=== PATIENT | female | born 1985 | race Caucasian/White ===

== ENCOUNTER 2017-06-23 13:08 | Inpatient (IN) | payer OTHER ==
[2017-06-23] MEDS ORDERED: Metoclopramide 10 MG/2 ML SDV IVPUSH ONE (16:45)
[2017-06-23] MEDS ORDERED: Citric Acid/Sodium Citrate Solution 30 ML Cup PO ONE (16:45)
[2017-06-23] MEDS ORDERED: ceFAZolin 2 GM in Premix Bag 1 BAG IV ONE (16:45)
[2017-06-23] MEDS ORDERED: Lactated Ringers 1,000 ML IV SCH (16:45)
[2017-06-23] MEDS ORDERED: Bupivacaine 0.5% 30 ML SDV ONE (16:56)
[2017-06-23] MEDS ORDERED: Oxytocin/Lactated Ringers 10 UNIT/1,000 ML BAG IV SCH (17:00)
[2017-06-23] MEDS ORDERED: Morphine PF 10 MG/10 ML SDV ONE (17:06)
[2017-06-23] MEDS ORDERED: ceFAZolin 1 GM Vial ONE (17:06)
[2017-06-23] MEDS ORDERED: Ketorolac 30 MG/ML SDV ONE (17:06)
[2017-06-23] MEDS ORDERED: Oxytocin 10 Units/1 ML SDV ONE ×2 (17:06→17:07)
[2017-06-23] MEDS ORDERED: Ondansetron 4 MG/2 ML SDV ONE (17:06)
--- NOTE | 2017-06-23 17:09 | PCM.LDHP ---
L&D History of Present Illness - General Date of Service: 06/23/17 Admit Problem/Dx: Patient Status Order with Admit Dx/Problem 06/23/17 16:46 Patient Status [ADT] Routine Admission Diagnosis/Problem Admission Diagnosis/Problem 06/23/17 17:02 38-0/7 week intrauterine , history of previous section, active labor with desire for repeat section. 06/23/17 17:02 Source of Information: Patient History Limitations: Reports: No Limitations - History of Present Illness Introduction:: Ana is a 32-year-old 4 para 10-1 white female who is admitted with contractions in late . She is 38-0/7 weeks gestational age with an ZEKE of 07/07/2017 is based upon a certain last menstrual starting 09/30/2016. She started in labor earlier today and contractions picked up to every 2-4 minutes, moderate intensity, lasting for 45-60 seconds. They are intense enough to be given for a scale of 10 pain. Patient is assessed of the probable onset of labor and is advised to undergo a repeat section this time. The procedure, risks, benefits, alternatives of care including attempt at are all discussed with patient. She appears to understand and wishes to proceed. History 4 para 10-1 patient's had 2 miscarriages in 2013 2014. She had a section on 11/29/2015 at 38 weeks gestational age after 4 hours of labor. Baby was found to be breech. This child's name is Olga is female, weight 8 lbs. 0 oz. She has spinal block for this. She is delivered in [facility]. care-patient transferred her care into our clinic on 06/17/2017 at 37 weeks. Her care is generally somewhat interrupted by relocating 3 times during course of but has had a relatively unremarkable by her report. laboratory testing: Blood is B+. And by screen is negative. Platelets are normal. Diabetic screen test was normal at 106. She is rubella immune. The RPR is nonreactive. Urine culture is negative. Hepatitis B surface antigen and HIV asses are negative. Gonorrhea and chlamydia are both negative. Group B strep screen was positive. Patient is allergic to ampicillin as she had a reaction when she is a child-reaction is unknown. The patient's platelet count second trimester was 389,000. Hemoglobin is 11.3 which time she was started on iron. Test was 106. Allergies: Ampicillin-reaction unknown as it occurred as a child Medications: vitamins 1 daily Past medical history: 1. Miscarriage 2 2. section for breech presentation. Past surgical history: 1. Breast lumpectomy section November 2015breech. Family history is noncontributory no anesthesia, bleeding or blood clotting proms noted in family. Social history: Patient is , lives in [facility]. She does not use any significant loss of alcohol, drugs or tobacco. She did smoke one half pack per day prior to . No significant drug or alcohol use. Review of systems: Skin negative Cardiovascular negative Respiratory -no infectious symptoms or shortness of breath Breasts-changes associated with Abdomen is protuberant with with fundal height of 38 cm. Baby in vertex presentation. Cervix is closed, soft and thick. Extremities neurologically grossly within normal limits. Physical exam: Gen. patient well-developed well-nourished pleasant female in mild distress secondary to contractions. Her blood pressure in clinic today is 122/75. Skin is warm dry without lesions. HEENT neck and back and normotensive. Lungs are clear with good breath sounds in all lung reyes. Cardiovascular exam shows regular rate and rhythm without murmurs. Breast exam is deferred. Abdomen is protuberant with , fundal height 38 cm. Cervix is above. Extremities neurological exam grossly within normal limits. 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: , Other (See Below) Other OB/BYN History: right breast lumpectomy 2016 and section 2015 Hematologic History: Reports: Anemia Social & Family History - Family History Family Medical History: Noncontributory - Tobacco Use Smoking Status *Q: Never Smoker Second Hand Smoke Exposure: No - Recreational Drug Use Recreational Drug Use: No H&P Review of Systems - Review of Systems: Review Of Systems: See Below L&D Exam - Exam Exam: See Below - Vital Signs Vital Signs: Last Vital Signs Temp 36.6 C 06/23/17 15:10 Pulse 82 06/23/17 15:10 Resp 18 06/23/17 15:10 BP 108/78 06/23/17 15:10 Pulse Ox 100 06/23/17 15:10 Weight: 79.424 kg - Patient Data Lab Results Last 24 hrs: Laboratory Results - last 24 hr 06/23/17 Range/Units 13:13 Urine Color Light yellow (Yellow) Urine Appearance Clear (Clear) Urine pH 6.0 (5.0-8.0) Ur Specific [place] 1.010 (1.005-1.030) Urine Protein Negative (Negative) Urine Glucose (UA) Negative (Negative) Urine Ketones Negative (Negative) Urine Occult Blood Trace-lysed H (Negative) Urine Nitrite Negative (Negative) Urine Bilirubin Negative (Negative) Urine Urobilinogen 0.2 (0.2-1.0) Ur Leukocyte Esterase 3+ H (Negative) Problem List Initiated/Reviewed/Updated: Yes Orders Last 24hrs: Active Orders 24 hr Category Date Time Status Patient Status [ADT] Routine ADT 06/23/17 16:46 Active Communication Order [RC] ROUTINE Care 06/23/17 16:46 Active Heart Tones [RC] PER UNIT ROUTINE Care 06/23/17 16:46 Active Procedure Site Prep Instruct [RC] ASDIRECTED Care 06/23/17 16:46 Active Verify Patient Consent Obtain [RC] PER UNIT ROUTINE Care 06/23/17 16:46 Active Vital Signs [RC] PFP Care 06/23/17 16:46 Active CBC WITH AUTO DIFF [HEME] Stat Lab 06/23/17 16:58 Received CULTURE URINE [RM] Routine Lab 06/23/17 13:13 Received TYPE AND SCREEN [BBK] Stat Lab 06/23/17 16:58 Received Citric Acid/Sodium Citrate [Bicitra Solution] Med 06/23/17 16:45 Once 30 ml PO ONETIME ONE Lactated Ringers [Ringers, Lactated] 1,000 ml Med 06/23/17 16:45 Ordered IV ASDIRECTED Metoclopramide [Reglan] Med 06/23/17 16:45 Once 10 mg IVPUSH ONETIME ONE Oxytocin/Lactated Ringers [Pitocin in LR 10 Units/1,000 Med 06/23/17 17:00 Ordered ML] 10 unit in 1,000 ml IV ASDIRECTED ceFAZolin [Ancef] 2 gm Med 06/23/17 16:45 Ordered Premix Bag 1 bag IV ONETIME Peripheral IV Insertion Adult [OM.PC] Routine Oth 06/23/17 16:46 Ordered Schedule Procedure [COMM] Per Unit Routine Oth 06/23/17 16:46 Ordered Resuscitation Status Routine Resus Stat 06/23/17 16:45 Ordered Medication Orders Citric Acid/Sodium Citrate (Bicitra Solution) 30 ml PO ONETIME ONE Stop: 06/23/17 16:46 Lactated Ringer's (Ringers, Lactated) 1,000 mls @ 125 mls/hr IV ASDIRECTED JAGUAR Oxytocin/Lactated Ringer's (Pitocin In Lr 10 Units/1,000 Ml) 10 unit in 1,000 mls @ 500 mls/hr IV ASDIRECTED JAGUAR Cefazolin Sodium/Dextrose 2 gm (/ Premix) 50 mls @ 100 mls/hr IV ONETIME ONE Stop: 06/23/17 17:14 Metoclopramide HCl (Reglan) 10 mg IVPUSH ONETIME ONE Stop: 06/23/17 16:46 Assessment/Plan Comment:: Assessment: 1. 30-0/7 week intrauterine , active labor, history of previous section desire for repeat section 2. Group B strep positive, penicillin allergic-no reported allergy to cephalosporins. 3. Blood is be positive. 4. Patient plans to nurse Plan: 1. Repeat low segment transverse section through facile skin incision under spinal block. Procedure, risks, benefits, alternatives of care including all option to do a trial of labor after section to attempt a vaginal after section are discussed in detail. Also discussed his postoperative follow-up. She appears to understand and wishes to proceed with C- section. 2. DVT prophylaxis with SCDs 3. Infection prophylaxis with Ancef. We'll give a test dose of Ancef initially than full dose after no reaction was noted 4. Routine preoperative labs. 5. Support nursing. 6. Price Analyst be present for delivery.
--- NOTE | 2017-06-23 17:12 | PCM.PREANE ---
Preanesthetic Assessment - Anesthesia/Transfusion/Family Hx Anesthesia History: Prior Anesthesia Without Reaction Family History of Anesthesia Reaction: No Transfusion History: No Prior Transfusion(s) - Review of Systems General: No Symptoms Pulmonary: No Symptoms Cardiovascular: No Symptoms Gastrointestinal: No Symptoms Neurological: No Symptoms Other: Reports: None - Physical Assessment O2 Sat by Pulse Oximetry: 100 Respiratory Rate: 18 Vital Signs: Last Vital Signs Temp 97.9 F 06/23/17 15:10 Pulse 82 06/23/17 15:10 Resp 18 06/23/17 15:10 BP 108/78 06/23/17 15:10 Pulse Ox 100 06/23/17 15:10 Height: 5 ft Weight: 79.424 kg ASA Class: 2 Mental Status: Alert & Oriented x3 Airway Class: Mallampati = 1 Dentition: Reports: Normal Dentition Thyro-Mental Finger Breadths: 3 Mouth Opening Finger Breadths: 3 ROM/Head Extension: Full Lungs: Clear to Auscultation, Normal Respiratory Effort Cardiovascular: Regular Rate, Regular Rhythm - Lab Values: Laboratory Last Values WBC 11.44 K/mm3 (3.98-10.04) H 06/23/17 16:58 RBC 4.48 M/mm3 (3.98-5.22) 06/23/17 16:58 Hgb 11.7 gm/L (11.2-15.7) 06/23/17 16:58 Hct 36.1 % (34.1-44.9) 06/23/17 16:58 MCV 80.6 fl (79.4-94.8) 06/23/17 16:58 MCH 26.1 pg (25.6-32.2) 06/23/17 16:58 MCHC 32.4 g/dl (32.2-35.5) 06/23/17 16:58 RDW Std Deviation 43.2 fL (36.4-46.3) 06/23/17 16:58 Plt Count 383 K/mm3 (182-369) H 06/23/17 16:58 MPV 9.1 fl (9.4-12.3) L 06/23/17 16:58 Neut % (Auto) 75.3 % (34.0-71.1) H 06/23/17 16:58 Lymph % (Auto) 16.9 % (19.3-51.7) L 06/23/17 16:58 Whitley % (Auto) 6.6 % (4.7-12.5) 06/23/17 16:58 Eos % (Auto) 0.5 (0.7-5.8) L 06/23/17 16:58 Baso % (Auto) 0.2 % (0.1-1.2) 06/23/17 16:58 Neut # (Auto) 8.61 K/mm3 (1.56-6.13) H 06/23/17 16:58 Lymph # (Auto) 1.93 K/mm3 (1.18-3.74) 06/23/17 16:58 Whitley # (Auto) 0.76 K/mm3 (0.24-0.36) H 06/23/17 16:58 Eos # (Auto) 0.06 K/mm3 (0.04-0.36) 06/23/17 16:58 Baso # (Auto) 0.02 K/mm3 (0.01-0.08) 06/23/17 16:58 Urine Color Light yellow (Yellow) 06/23/17 13:13 Urine Appearance Clear (Clear) 06/23/17 13:13 Urine pH 6.0 (5.0-8.0) 06/23/17 13:13 Ur Specific [place] 1.010 (1.005-1.030) 06/23/17 13:13 Urine Protein Negative (Negative) 06/23/17 13:13 Urine Glucose (UA) Negative (Negative) 06/23/17 13:13 Urine Ketones Negative (Negative) 06/23/17 13:13 Urine Occult Blood Trace-lysed (Negative) H 06/23/17 13:13 Urine Nitrite Negative (Negative) 06/23/17 13:13 Urine Bilirubin Negative (Negative) 06/23/17 13:13 Urine Urobilinogen 0.2 (0.2-1.0) 06/23/17 13:13 Ur Leukocyte Esterase 3+ (Negative) H 06/23/17 13:13 - Allergies Allergies/Adverse Reactions: Allergies Allergy/AdvReac Type Severity Reaction Status Date / Time ampicillin Allergy Rash Verified 06/23/17 16:42 - Blood Blood Available: No - Acknowledgements Anesthesia Type Planned: Spinal, Epidural Pt an Appropriate Candidate for the Planned Anesthesia: Yes Alternatives and Risks of Anesthesia Discussed w Pt/Guardian: Yes Pt/Guardian Understands and Agrees with Anesthesia Plan: Yes PreAnesthesia Questionnaire Gastrointestinal History: Reports: GERD (with preg) 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: , Other (See Below) Other OB/BYN History: right breast lumpectomy 2016 and section 2016 Hematologic History: Reports: Anemia - Past Surgical History Head Surgeries/Procedures: Reports: Other (See Below) (wisdom) Female Surgical History: Reports: Breast Biopsy, Section - History Comment History Comment: vits- quit asa 83 last week - SUBSTANCE USE Smoking Status *Q: Former Smoker (quit april 2015) Second Hand Smoke Exposure: No Days Per Week of Alcohol Use: 0 Number of Drinks Per Day: 0 Total Drinks Per Week: 0 Recreational Drug Use History: No - CURRENT (IN HOUSE) MEDS Current Meds: Current Medications Citric Acid/Sodium Citrate (Bicitra Solution) 30 ml PO ONETIME ONE Stop: 06/23/17 16:46 Lactated Ringer's (Ringers, Lactated) 1,000 mls @ 125 mls/hr IV ASDIRECTED JAGUAR Oxytocin/Lactated Ringer's (Pitocin In Lr 10 Units/1,000 Ml) 10 unit in 1,000 mls @ 500 mls/hr IV ASDIRECTED JAGUAR Cefazolin Sodium/Dextrose 2 gm (/ Premix) 50 mls @ 100 mls/hr IV ONETIME ONE Stop: 06/23/17 17:14 Metoclopramide HCl (Reglan) 10 mg IVPUSH ONETIME ONE Stop: 06/23/17 16:46 Discontinued Medications Cefazolin Sodium (Ancef) Confirm Administered Dose 2 gm .ROUTE .STK-MED ONE Stop: 06/23/17 17:07 Ketorolac Tromethamine (Toradol) Confirm Administered Dose 30 mg .ROUTE .STK- MED ONE Stop: 06/23/17 17:07 Morphine Sulfate (Duramorph Pf) Confirm Administered Dose 10 mg .ROUTE .STK-MED ONE Stop: 06/23/17 17:07 Ondansetron HCl (Zofran) Confirm Administered Dose 4 mg .ROUTE .STK-MED ONE Stop: 06/23/17 17:07 Oxytocin (Pitocin) Confirm Administered Dose 10 unit .ROUTE .STK-MED ONE Stop: 06/23/17 17:07 Oxytocin (Pitocin) Confirm Administered Dose 10 unit .ROUTE .[facility] ONE Stop: 06/23/17 17:08
[2017-06-23] MEDS ORDERED: diphenhydrAMINE 50 MG/ML SDV IVPUSH PRN ×2 (18:15→22:28)
[2017-06-23] MEDS ORDERED: ePHEDrine 50 MG/ML SDV IVPUSH PRN ×2 (18:15→22:28)
[2017-06-23] MEDS ORDERED: Ondansetron 4 MG/2 ML SDV IVPUSH PRN (18:15)
[2017-06-23] MEDS ORDERED: fentaNYL 100 MCG/2 ML SDV IVPUSH PRN (18:15)
[2017-06-23] MEDS ORDERED: Lactated Ringers 1,000 ML ONE (18:47)
--- NOTE | 2017-06-23 19:20 | PCM.POSTAN ---
POST ANESTHESIA ASSESSMENT - MENTAL STATUS Mental Status: Alert, Oriented - VITAL SIGNS Pulse Rate: 75 SaO2: 100 Resp Rate: 11 Blood Pressure: 106/60 Temperature: 97.7 F - RESPIRATORY Respiratory Status: Respiratory Rate WNL, Airway Patent, O2 Saturation Stable, Supplemental Oxygen - CARDIOVASCULAR CV Status: Pulse Rate WNL, Blood Pressure Stable - GASTROINTESTINAL GI Status: No Symptoms - PAIN Pain Score: 0 - POST OP HYDRATION Hydration Status: Adequate & Stable
--- NOTE | 2017-06-23 19:27 | PCM.OPNOTE ---
- General Post-Op/Procedure Note Date of Surgery/Procedure: 06/23/17 Operative Procedure(s): Repeat lower uterine segment transverse section through Pfannenstiel skin incision Findings: Moderate amount of scarring in the anterior abdominal wall. Patient seemed to have a lot of extra venous oozing course the case. The uterus tubes and ovaries were consistent with term . The lower uterine segment was approximately 3 mm thick. Amniotic fluid was clear. Baby is in vertex presentation. Was opened enough to allow egress of fluid and blood. Baby weighed 7 lbs. 13 oz. and was born at 1825 hrs. because of baby girl. Apgars were 8 and 9. Pre Op Diagnosis: 38-0/7 week intrauterine , active labor, history of previous section with desire for repeat section Post-Op Diagnosis: Same with delivery of viable pires female infant. Anesthesia Technique: Spinal Other Anesthesia Type: Marcaine 0.5%20 mL local Primary Surgeon: Rinku Story Secondary Surgeon: Bennie Cunningham Anesthesia Provider: Ramiro Garcia Fluid Replacement, Intraop: 2,300 (Lactated Ringer's) Output, Urine Amount: 150 EBL in mLs: 700 Drain/Tube Comments:: Indwelling bladder catheter Complications: None Condition: Good Free Text/Narrative:: Surgery duration: 51 minutes Procedure: Patient was transferred the room and placed in a sitting position. Spinal anesthesia was performed. After confirmation of adequate anesthesia patient was placed in a supine position with a wedge under her right side to facilitate left lateral positioning. The patient was prepped and draped in usual fashion after Jacques catheter was already placed . The anesthetic was checked and found to be adequate. The Pfannenstiel skin incision was then made carried down to skin subcutaneous and fascial layers. The fascia was then undermined superiorly and inferiorly to allow for adequate operating room the recti muscles midline and preperitoneal fat was bluntly dissected. Peritoneal cavity was entered longitudinally. The vesicouterine peritoneum was then incised transversely and bladder flap was developed. Myometrium was incised transversely to the level of the amniotic sac. This incision was extended bilaterally in a blunt fashion. The amniotic sac was then ruptured resulting clear amniotic fluid. A hand is placed and low uterine segment and the baby's head was brought forth through the incision. The baby was completely delivered using fundal pressure in a routine fashion. The nose and mouth were bulb suctioned. Babys cord was clamped x2 cut and baby was handed off to attending cyber transport systems specialist Dr Henderson. Placenta was expressed after cord blood was obtained. Uterus was then exteriorized to allow for easier closure. The cervix was assessed and found to be dilated adequately to allow egress of blood. The uterus was closed in 2 layers. The first layer a running locked suture of 0 Monocryl, the second layer a running locked vertical mattress suture of 0 Monocryl. Kfpurw-[id number] suture was placed at the left incision to control 1 bleeder. Hemostasis confirmed at this time. Sponge instrument needle counts are correct. The uterus was returned to the abdominal cavity and lateral gutters were cleared of blood. Once again sponge needle counts are correct. The anterior abdominal wall was closed with a #1 PDS suture from angle to angle. The subcutaneous area was found to be free of any bleeders. It was approximately 3 sutures of 0 Monocryl placed in interrupted fashion. Skin was closed with a running subcuticular stitch of 3-0 Monocryl in a vertical mattress suture fashion using a Baljit needle. Prineo mesh/glue was then applied to further approximate the incision. It should be noted that patient received 2 g of Ancef preoperatively for infection prophylaxis and had Pitocin infused after delivery of the placenta to facilitate uterine contraction. She also had sequential compression stockings in place for DVT prophylaxis. Patient was discharged from the operating room in satisfactory condition.
[2017-06-23] MEDS ORDERED: Dextrose 5%-Lactated Ringers 1,000 ML ONE (22:10)
[2017-06-23] MEDS ORDERED: Naloxone 0.4 MG/ML SDV IVPUSH PRN (22:28)
[2017-06-23] MEDS ORDERED: Lanolin 100% Cream 7 GM Tube TOP PRN (22:28)
[2017-06-23] MEDS ORDERED: Dextrose 5%-0.45% NaCl 1,000 ML IV SCH (22:28)
[2017-06-23] MEDS ORDERED: Dextrose 5%-Lactated Ringers 1,000 ML IV SCH (22:28)
[2017-06-23] MEDS ORDERED: Ondansetron 4 MG/2 ML SDV IV PRN (22:28)
[2017-06-23] MEDS: Simethicone 80 MG Tab.Chew PO SCH (22:59)
[2017-06-24] MEDS: Ibuprofen 800 MG Tab PO SCH ×3 (03:47→20:52)
--- NOTE | 2017-06-24 07:48 | PCM.SN ---
- Free Text/Narrative Note: The patient's presently on postop day 2. She is doing well. Minimal lochia, voiding well. She is ambulating without concerns. Patient is afebrile, vital signs stable. Abdomen soft, nontender, uterus at the umbilicus and nontender. Uterine incision was dry and intact. Extremities show no significant edema or other concern. Her hemoglobin is 9.9 and platelets are 308,000. Assessment/plan: Postop day 1normal recovery. Will increase diet, activity and discontinue catheter, IV eventually and SCDs when ambulating well. Recommend routine cares.
[2017-06-24] MEDS: Simethicone 80 MG Tab.Chew PO SCH ×4 (08:45→21:00)
[2017-06-24] MEDS: Docusate Sodium 100 MG Cap PO SCH ×2 (08:45→20:52)
[2017-06-24] MEDS: Prenatal Multivitamin with Calcium/Folic Acid/Iron Tab PO SCH (08:45)
[2017-06-24] MEDS: Acetaminophen/oxyCODONE 325-5 MG Tab PO PRN ×2 (13:25→17:27)
--- NOTE | 2017-06-24 14:14 | PCM48HPAN ---
Post Anesthesia Note - EVALUATION WITHIN 48HRS OF ANESTHETIC Vital Signs in Normal Range: Yes Patient Participated in Evaluation: Yes Respiratory Function Stable: Yes Airway Patent: Yes Cardiovascular Function Stable: Yes Hydration Status Stable: Yes Pain Control Satisfactory: Yes Nausea and Vomiting Control Satisfactory: Yes Mental Status Recovered: Yes - COMMENTS/OBSERVATIONS Free Text/Narrative:: Patient denied any headaches, residual numbness/tingling to LE, or back pain. Patient doing well resting in bed.
[2017-06-25] MEDS: Ibuprofen 800 MG Tab PO SCH ×2 (03:50→12:00)
[2017-06-25] MEDS: Simethicone 80 MG Tab.Chew PO SCH ×2 (08:02→12:01)
[2017-06-25] MEDS: Docusate Sodium 100 MG Cap PO SCH (08:02)
[2017-06-25] MEDS: Prenatal Multivitamin with Calcium/Folic Acid/Iron Tab PO SCH (08:02)
--- NOTE | 2017-06-25 08:29 | PCM.DCSUM1 ---
[id number] female who is admitted in active labor. She had a history of previous section and desire for repeat section. Please see history and physical for details. - Discharge Data Discharge Date: 06/25/17 Discharge Disposition: Home, Self-Care 01 Condition: Good - Patient Summary/Data Operative Procedure(s) Performed: Repeat lower uterine segment transverse section through Pfannenstiel skin incision Hospital Course: Patient's had an uneventful hospital course. On postoperative day 2 today she is doing well. Pain is well-controlled with ibuprofen and Percocet. Vital signs stable, she has been afebrile. She is nursing without problems/plans to pump when she gets home. She is desiring discharge home. - Patient Instructions Diet: Regular Diet as Tolerated (Nursing diet was increased calories and calcium as recommended.) Activity: As Tolerated (No lifting greater than 15 pounds or car 1 week. May shower. No tub baths 1 week. No intercourse or tampons until seen back.) Driving: Do Not Drive Showering/Bathing: May Shower Wound/Incision Care: Keep Operative Site/Wound Site Clean and Dry Notify Provider of: Fever, Increased Pain, Swelling and Redness, Drainage, Nausea and/or Vomiting - Discharge Plan Home Medications: Home Meds Vit #108/Iron/FA [ One Tablet] 1 tab PO DAILY 06/23/17 [History ] Acetaminophen/oxyCODONE [Percocet 325-5 MG] 2 tab PO Q4H PRN #30 tablet [Rx] Docusate Sodium [Colace] 100 mg PO BID cap 06/25/17 [Rx] Ibuprofen [IJD: Ibuprofen] 600 mg PO Q4H PRN #30 tablet 06/25/17 [Rx] Patient Handouts: Delivery, Care After Referrals: Rinku Story MD [Physician] - (Return to clinic-Dr. Story-4 weeks-[facility].) - Discharge Summary/Plan Comment DC Time >30 min.: No Discharge Summary/Plan Comment: Discharge instructions: 1. Discharge home 2. Regular, high fiber, nursing diet with increased calcium and calories as directed 3. Precautions given concern increased pain, bleeding, temperature, signs/ symptoms of DVT/PE. 4. Medications per home medication was printed, discussed with them given to the patient 5. Return to clinic-4 weeks-Dr. Story-[facility]. Diagnosis: 38 week intrauterine [id number] Condition: Good - Patient Data Vitals - Most Recent: Last Vital Signs Temp 36.2 C 06/25/17 04:26 Pulse 77 06/25/17 04:26 Resp 18 06/25/17 04:26 BP 106/79 06/25/17 04:26 Pulse Ox 100 06/25/17 04:26 Weight - Most Recent: 79.424 kg I&O - Last 24 hours: Intake & Output 06/24/17 06/25/17 06/25/17 22:59 06:59 14:59 Intake Total 120 800 Output Total 800 Balance 120 0 Med Orders - Current: Current Medications Diphenhydramine HCl (Benadryl) 25 mg IVPUSH Q6H PRN PRN Reason: Itching or Nausea Docusate Sodium (Colace) 100 mg PO BID [facility] Last Admin: 06/25/17 08:02 Dose: 100 mg Emollient Ointment (Lansinoh Hpa) 0 gm TOP ASDIRECTED PRN PRN Reason: Sore Nipples Ephedrine Sulfate (Ephedrine Sulfate) 5 mg IVPUSH ASDIRECTED PRN PRN Reason: Hypotension Ephedrine Sulfate (Ephedrine Sulfate) 5 mg IVPUSH SEECOMMENT PRN PRN Reason: Other Dextrose/Sodium Chloride (Dextrose 5%-1/2 Ns) 1,000 mls @ 125 mls/hr IV ASDIRECTED JAGUAR Ibuprofen (Motrin) 800 mg PO Q8H [facility] Last Admin: 06/25/17 03:50 Dose: 800 mg Naloxone HCl (Narcan) 0.1 mg IVPUSH SEECOMMENT PRN PRN Reason: Respiratory Depression Ondansetron HCl (Zofran) 4 mg IV Q4H PRN PRN Reason: Nausea/Vomiting Oxycodone/Acetaminophen (Percocet 325-5 Mg) 2 tab PO Q4H PRN PRN Reason: Pain (moderate 4-6) Last Admin: 06/24/17 17:27 Dose: 2 tab Prenat Multivit/[place]/Iron/Folic Ac ( Plus Iron) 1 each PO DAILY [facility] Last Admin: 06/25/17 08:02 Dose: 1 each Simethicone (Simethicone) 80 mg PO PCBED [facility] Last Admin: 06/25/17 08:02 Dose: 80 mg Discontinued Medications Bupivacaine HCl (Marcaine 0.5%) Confirm Administered Dose 30 ml .ROUTE .STK-MED ONE Stop: 06/23/17 16:57 Last Admin: 06/23/17 18:20 Dose: 20 ml Cefazolin Sodium (Ancef) Confirm Administered Dose 2 gm .ROUTE .K-MED ONE Stop: 06/23/17 17:07 Citric Acid/Sodium Citrate (Bicitra Solution) 30 ml PO ONETIME ONE Stop: 06/23/17 16:46 Last Admin: 06/23/17 17:15 Dose: 30 ml Diphenhydramine HCl (Benadryl) 25 mg IVPUSH Q6H PRN PRN Reason: pruritis Fentanyl (Sublimaze) 50 mcg IVPUSH Q5M PRN PRN Reason: Pain Lactated Ringer's (Ringers, Lactated) 1,000 mls @ 125 mls/hr IV [facility] Last Admin: 06/23/17 17:00 Dose: 125 mls/hr Oxytocin/Lactated Ringer's (Pitocin In Lr 10 Units/1,000 Ml) 10 unit in 1,000 mls @ 500 mls/hr IV [facility] Cefazolin Sodium/Dextrose 2 gm (/ Premix) 50 mls @ 100 mls/hr IV ONETIME ONE Stop: 06/23/17 17:14 Lactated Ringer's (Ringers, Lactated) Confirm Administered Dose 1,000 mls @ as directed .ROUTE .[facility]-MED ONE Stop: 06/23/17 18:48 Dextrose/Lactated Ringer's (Dextrose 5%-Lactated Ringers) Confirm Administered Dose 1,000 mls @ as directed .ROUTE .STK-MED ONE Stop: 06/23/17 22:11 Last Admin: 06/23/17 22:58 Dose: Not Given Dextrose/Lactated Ringer's (Dextrose 5%-Lactated Ringers) 1,000 mls @ 125 mls/ hr IV [facility] Stop: 06/24/17 06:27 Last Admin: 06/23/17 23:07 Dose: 125 mls/hr Ketorolac Tromethamine (Toradol) Confirm Administered Dose 30 mg .ROUTE .STK- MED ONE Stop: 06/23/17 17:07 Metoclopramide HCl (Reglan) 10 mg IVPUSH ONETIME ONE Stop: 06/23/17 16:46 Last Admin: 06/23/17 17:15 Dose: 10 mg Morphine Sulfate (Duramorph Pf) Confirm Administered Dose 10 mg .ROUTE .STK-MED ONE Stop: 06/23/17 17:07 Ondansetron HCl (Zofran) Confirm Administered Dose 4 mg .ROUTE .STK-MED ONE Stop: 06/23/17 17:07 Ondansetron HCl (Zofran) 4 mg IVPUSH ONETIME PRN PRN Reason: Nausea/Vomiting Oxytocin (Pitocin) Confirm Administered Dose 10 unit .ROUTE .STK-MED ONE Stop: 06/23/17 17:07 Oxytocin (Pitocin) Confirm Administered Dose 10 unit .ROUTE .STK-MED ONE Stop: 06/23/17 17:08 *Q Meaningful Use (DIS) - VTE *Q VTE Criteria *Q: - Stroke *Q Stroke Criteria *Q: - AMI *Q AMI Criteria *Q:
[2017-06-25] MEDS: Acetaminophen/oxyCODONE 325-5 MG Tab PO PRN ×2 (08:48→17:02)
[2017-06-25 13:56] VITALS: BP 95/58
== END 2017-06-25 17:55 | disposition home or self-care (01) | DRG 766 ==
LOC: JD.WOMH 13:08 → JD.OB 14:08 → JD.WOMH 16:46 → JD.OB 18:26
PROVIDERS: ADMIT Obstetrics & Gynecology; ATTEND Obstetrics & Gynecology
PROC: 10D00Z1 Extraction of Products of Conception, Low, Open Approach (ICD-10-PCS; principal; 2017-06-23)
DX: O34.211 Maternal care for low transverse scar from previous cesarean delivery (principal); O99.824 Streptococcus B carrier state complicating childbirth; Z3A.38 38 weeks gestation of pregnancy; Z37.0 Single live birth; Z88.8 Allergy status to other drugs, medicaments and biological substances
CPT/HCPCS: 01961; 36415; 81003; 85025; 86850; 86900; 86901; 87086; 94762; A9270-GY; J0690; J1885; J2270; J2405; J2590; J2765; J7042; J7120

== ENCOUNTER 2019-11-07 20:17 | Emergency (ER) | payer OTHER ==
[2019-11-07 20:56] VITALS: BP 122/76; PULSE 80
--- NOTE | 2019-11-07 21:09 | EDM.PDOC ---
ED HPI GENERAL MEDICAL PROBLEM - General Chief Complaint: Chest Pain Stated Complaint: CHEST CRAMPING/TINGLY HEAD AND FACE Time Seen by Provider: 11/07/19 21:09 - History of Present Illness INITIAL COMMENTS - FREE TEXT/NARRATIVE: 34-year-old female presents emergency room with nausea chest pressure tingling on the top of her head and in her arms. She also had some nausea associated with this. Most of this has resolved she still is a tingling on the top of her head chest pressure for the most part is resolved. The patient states she's a high stressed person, however, generally doesn't have problems with anxiety. She denies any other complaints at this and is otherwise doing well. 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 AND STRAPPER: Reports: Other (see below) Other 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 AND STRAPPER: none - Related Data Allergies Allergy/AdvReac Type Severity Reaction Status Date / Time ampicillin Allergy Rash Verified 06/23/17 16:42 Home Meds: Home Meds Fluconazole 150 mg PO MO 11/07/19 [History] Multivitamin [Daily Petty] 1 tab PO DAILY 11/07/19 [History] Past Medical History Cardiovascular History: Reports: Other (See Below) Other Cardiovascular History: sinus arrhthymia Gastrointestinal History: Reports: GERD INVENTORY ASSOCIATE History: Reports: , Other (See Below) Other INVENTORY ASSOCIATE History: right breast lumpectomy 2016 and section 2015 Hematologic History: Reports: Anemia - Past Surgical History Head Surgeries/Procedures: Reports: Other (See Below) Female Surgical History: Reports: Breast Biopsy, Section - History Comment History Comment: vits- quit asa 83 last week Social & Family History - Family History Family Medical History: Noncontributory - Tobacco Use Smoking Status *Q: Former Smoker Used Tobacco, but Quit: Yes Month/Year Tobacco Last Used: 2014 - Caffeine Use Caffeine Use: Reports: Coffee, Tea - Recreational Drug Use Recreational Drug Use: No ED ROS GENERAL - Review of Systems Review Of Systems: See Below Constitutional: Reports: No Symptoms HEENT: Reports: No Symptoms Respiratory: Reports: No Symptoms Cardiovascular: Reports: Chest Pain (Resolved) Endocrine: Reports: No Symptoms GI/Abdominal: Reports: No Symptoms : Reports: No Symptoms Musculoskeletal: Reports: No Symptoms Skin: Reports: No Symptoms Neurological: Reports: No Symptoms Psychiatric: Reports: Anxiety. Denies: No Symptoms, Agitation, Confusion, Depression ED EXAM, GENERAL - Physical Exam Exam: See Below Exam Limited By: No Limitations General Appearance: Alert, No Apparent Distress Ears: Normal External Exam, Normal Canal, Hearing Grossly Normal, Normal TMs Nose: Normal Inspection, Normal Mucosa, No Blood Throat/Mouth: Normal Inspection, Normal Lips, Normal Teeth, Normal Gums, Normal Oropharynx, Normal Voice, No Airway Compromise Head: Atraumatic, Normocephalic Neck: Normal Inspection, Supple, Non-Tender, Full Range of Motion Respiratory/Chest: No Respiratory Distress, Lungs Clear, Normal Breath Sounds, No Accessory Muscle Use, Chest Non-Tender Cardiovascular: Normal Peripheral Pulses, Regular Rate, Rhythm, No Edema, No Gallop, No JVD, No Murmur, No Rub EKG INTERPRETATION Rhythm: NSR P-Wave: Present QRS: Normal ST-T: Other (Inverted T waves in V2 probably lead placement. No signs of ischemia) QT: Normal Comparison: NA - No Prior EKG EKG Interpretation Comments: Borderline EKG Course - Vital Signs Last Recorded V/S: Last Vital Signs Temp 36.9 C 11/07/19 20:55 Pulse 80 11/07/19 20:55 Resp 18 11/07/19 20:55 BP 122/76 11/07/19 20:55 Pulse Ox 100 11/07/19 20:55 - Orders/Labs/Meds Orders: Active Orders 24 hr Category Date Time Status EKG Documentation Completion [RC] STAT Care 11/07/19 21:19 Active - Re-Assessments/Exams Free Text/Narrative Re-Assessment/Exam: 11/07/19 21:55 Patient saw some tingling on the top of her head offered her an Ativan to take home and she declined this. She's afraid the to be sedated and she started taking care of her kids. If her chest wall pain returns she can use some ibuprofen for this it sounds like both of her kids have viral type illnesses at home. Departure - Departure Time of Disposition: 21:56 Disposition: Home, Self-Care 01 Clinical Impression: Anxiety reaction - Discharge Information Referrals: PCP,None [Primary Care Provider] - Forms: ED Department Discharge Additional Instructions: Return to the emergency room with any questions problems worsening symptoms. If the chest wall pain becomes an issue try Aleve or ibuprofen. Follow-up in the Hospital clinic this next week if needed. [phone] Sepsis Event Note - Evaluation Sepsis Screening Result: No Definite Risk - Focused Exam Vital Signs: Vital Signs Temp Pulse Resp BP Pulse Ox 11/07/19 20:55 36.9 C 80 18 122/76 100 Date Exam was Performed: 11/07/19 Time Exam was Performed: 21:54 - My Orders Last 24 Hours: My Active Orders 11/07/19 21:19 EKG Documentation Completion [RC] STAT - Assessment/Plan Last 24 Hours: My Active Orders 11/07/19 21:19 EKG Documentation Completion [RC] STAT
== END 2019-11-07 22:02 | disposition home or self-care (01) ==
LOC: JD.ED 20:17
DX: F41.1 Generalized anxiety disorder (principal); Z88.0 Allergy status to penicillin; Z87.891 Personal history of nicotine dependence
CPT/HCPCS: 93005; 93010; 99283; 99284-25